=== PATIENT | female | born 2000 | race Caucasian/White ===

== ENCOUNTER 2024-09-18 10:49 | Emergency (ER) | payer SELFPAY ==
[2024-09-18] MEDS: Ondansetron 4 MG/2 ML SDV IVPUSH ONE (11:41)
[2024-09-18] MEDS: Sodium Chloride 0.9% 1,000 ML IV ONE (11:42)
[2024-09-18 12:11] LABS: ALBUMIN 4.1 g/dL (3.4-5.0); BILIRUBIN TOTAL 0.3 mg/dL (0.2-1.0); CALCIUM 10.5 mg/dL (8.5-10.1); CARBON DIOXIDE,CO2 19.3 mmol/L (21.0-32.0); CREATININE 0.8 mg/dL (0.6-1.0); EST CRCL DRUG DOSING (CG) 78.56 mL/min; POTASSIUM,K 4.1 mmol/L (3.5-5.1); PROTEIN TOTAL,TP 8.4 g/dL (6.4-8.2)
== END 2024-09-18 12:59 | disposition home or self-care (01) ==
LOC: MW.ED 10:49
DX: K52.9 Noninfective gastroenteritis and colitis, unspecified (principal); E86.0 Dehydration; Z79.899 Other long term (current) drug therapy
CPT/HCPCS: 36415; 80053; 96361; 96374; 99284; J2405; J7030